=== PATIENT | male | born 1960 | race Caucasian/White ===

== ENCOUNTER 2021-08-28 13:10 | Inpatient (IN) ==
[2021-08-28] MEDS ORDERED: Ondansetron 4 MG/2 ML VIAL IVP PRN (16:01)
[2021-08-28] MEDS ORDERED: Naloxone 0.4 MG/ML INJ IVP PRN (16:01)
[2021-08-28] MEDS: carvediloL 6.25 MG TABLET PO SCH (16:46)
[2021-08-28] MEDS: Azithromycin 500 MG in 0.9 % Sodium Chloride 250 ML IVPB SCH (16:46)
[2021-08-28] MEDS: Ipratropium/Albuterol Neb 3 ML IH SCH ×2 (17:11→22:07)
[2021-08-28] MEDS: Apixaban 5 MG TABLET PO SCH (21:01)
[2021-08-28] MEDS: haloperidoL 5 MG TABLET PO SCH (21:01)
[2021-08-29 00:46] LABS: Hematocrit 33.3 % (37.5-50.1); Hemoglobin 11.2 g/dL (12.9-16.9); Mean Corpuscular HGB Conc 33.6 g/dL (31.6-35.5); Mean Corpuscular Hemoglobin 31.4 pg (28.0-33.3); Mean Corpuscular Volume 93.3 fL (83.0-100.0); Mean Platelet Volume 11.1 fL (9.4-12.4); Platelet Count 183 K/mcL (140-400); Red Blood Count 3.57 M/mcL (4.19-5.50); Red Cell Distribution Width 13.4 % (11.5-14.5); White Blood Count 15.6 K/mcL (4.3-11.1)
[2021-08-29 01:01] LABS: BUN/Creatinine Ratio 19 (6-26); Blood Urea Nitrogen 15 mg/dL (8-23); Calcium 7.9 mg/dL (8.6-10.3); Carbon Dioxide 22 mEq/L (23-29); Chloride 108 mEq/L (98-107); Glucose 141 mg/dL (70-105); Magnesium 1.5 mg/dL (1.6-2.6); Osmolality,Calculated 283 (280-300); Sodium 135 mEq/L (136-145); eGFR For African Americans > 60 (> 60); eGFR For Non-African Americans > 60 (> 60)
[2021-08-29 01:17] LABS: Lymphocytes # 1.9 K/mcL (0.6-4.6); Monocytes # 0.3 K/mcL (0.0-1.3); Neutrophils # 13.4 K/mcL (1.6-8.9)
[2021-08-29 01:18] LABS: Platelet Estimate Normal (Normal)
[2021-08-29] MEDS: Ipratropium/Albuterol Neb 3 ML IH SCH ×4 (03:52→21:00)
[2021-08-29] MEDS ORDERED: Calcium Gluconate 1gm/50mL 1 GM/50 ML BAG IVPB ONE (07:31)
[2021-08-29] MEDS ORDERED: lisinopriL 10 MG TABLET PO SCH (09:00)
[2021-08-29] MEDS: cefTRIAXone 1,000 MG in 0.9 % Sodium Chloride Mini Bag 100 ML IVPB SCH (09:40)
[2021-08-29] MEDS: Aspirin 81 MG TAB.CHEW PO SCH (09:41)
[2021-08-29] MEDS: carvediloL 6.25 MG TABLET PO SCH ×2 (09:41→17:30)
[2021-08-29] MEDS: Apixaban 5 MG TABLET PO SCH ×2 (09:41→23:09)
[2021-08-29] MEDS: Azithromycin 500 MG in 0.9 % Sodium Chloride 250 ML IVPB SCH (11:07)
[2021-08-29] MEDS ORDERED: carvediloL 6.25 MG TABLET PO SCH (15:00)
[2021-08-29] MEDS: haloperidoL 5 MG TABLET PO SCH (23:01)
[2021-08-30] MEDS ORDERED: Vancomycin 1,750 MG/517.5 ML IV.SOLN IVPB ONE (02:00)
[2021-08-30] MEDS: Ipratropium/Albuterol Neb 3 ML IH SCH ×4 (04:27→22:07)
[2021-08-30 05:56] LABS: Basophils % 0.3 %; Eosinophils # 0.3 K/mcL (0.0-0.6); Eosinophils % 3.5 %; Hematocrit 32.3 % (37.5-50.1); Hemoglobin 10.9 g/dL (12.9-16.9); Immature Granulocytes % 0.4 % (0-4); Lymphocytes % 11.1 %; Mean Corpuscular HGB Conc 33.7 g/dL (31.6-35.5); Mean Corpuscular Hemoglobin 31.7 pg (28.0-33.3); Mean Corpuscular Volume 93.9 fL (83.0-100.0); Mean Platelet Volume 10.9 fL (9.4-12.4); Monocytes # 0.6 K/mcL (0.0-1.3); Monocytes % 6.2 %; Neutrophils # 7.3 K/mcL (1.6-8.9); Platelet Count 164 K/mcL (140-400); Red Blood Count 3.44 M/mcL (4.19-5.50); Red Cell Distribution Width 13.6 % (11.5-14.5); Segmented Neutrophils % 78.5 %; White Blood Count 9.4 K/mcL (4.3-11.1)
[2021-08-30] MEDS ORDERED: Doxycycline 100 MG in 0.9 % Sodium Chloride Mini Bag 100 ML IVPB SCH (06:00)
[2021-08-30 06:51] LABS: BUN/Creatinine Ratio 18 (6-26); Blood Urea Nitrogen 12 mg/dL (8-23); Calcium 8.2 mg/dL (8.6-10.3); Carbon Dioxide 24 mEq/L (23-29); Chloride 106 mEq/L (98-107); Glucose 125 mg/dL (70-105); Magnesium 1.6 mg/dL (1.6-2.6); Osmolality,Calculated 285 (280-300); Potassium 3.6 mEq/L (3.5-5.1); Sodium 137 mEq/L (136-145); eGFR For African Americans > 60 (> 60); eGFR For Non-African Americans > 60 (> 60)
[2021-08-30] MEDS: Aspirin 81 MG TAB.CHEW PO SCH (07:26)
[2021-08-30] MEDS: carvediloL 6.25 MG TABLET PO SCH ×2 (07:27→17:15)
[2021-08-30] MEDS: Apixaban 5 MG TABLET PO SCH ×2 (07:27→20:12)
[2021-08-30] MEDS: cefTRIAXone 1,000 MG in 0.9 % Sodium Chloride Mini Bag 100 ML IVPB SCH (07:27)
[2021-08-30] MEDS: haloperidoL 1 MG TABLET PO SCH (07:30)
[2021-08-30] MEDS: Spironolactone 25 MG TABLET PO SCH (12:58)
[2021-08-30] MEDS ORDERED: Vancomycin 1,500 MG/265 ML IV.SOLN IVPB SCH ×3 (14:00→17:00)
[2021-08-30] MEDS: haloperidoL 5 MG TABLET PO SCH (20:16)
[2021-08-31 04:08] LABS: Basophils # 0.1 K/mcL (0.0-0.2); Basophils % 0.7 %; Eosinophils # 0.4 K/mcL (0.0-0.6); Eosinophils % 4.7 %; Hematocrit 39.5 % (37.5-50.1); Immature Granulocytes % 0.5 % (0-4); Lymphocytes # 1.3 K/mcL (0.6-4.6); Lymphocytes % 15.3 %; Mean Corpuscular HGB Conc 31.9 g/dL (31.6-35.5); Mean Corpuscular Hemoglobin 31.2 pg (28.0-33.3); Mean Corpuscular Volume 97.8 fL (83.0-100.0); Monocytes # 0.7 K/mcL (0.0-1.3); Monocytes % 8.3 %; Neutrophils # 5.8 K/mcL (1.6-8.9); Platelet Count 197 K/mcL (140-400); Red Blood Count 4.04 M/mcL (4.19-5.50); Red Cell Distribution Width 13.4 % (11.5-14.5); Segmented Neutrophils % 70.5 %; White Blood Count 8.2 K/mcL (4.3-11.1)
[2021-08-31 04:10] LABS: Hemoglobin 12.6 g/dL (12.9-16.9)
[2021-08-31] MEDS: Ipratropium/Albuterol Neb 3 ML IH SCH ×3 (04:10→15:46)
[2021-08-31 05:05] LABS: BUN/Creatinine Ratio 16 (6-26); Blood Urea Nitrogen 12 mg/dL (8-23); Calcium 8.4 mg/dL (8.6-10.3); Carbon Dioxide 20 mEq/L (23-29); Chloride 106 mEq/L (98-107); Glucose 80 mg/dL (70-105); Osmolality,Calculated 287 (280-300); Potassium 4.2 mEq/L (3.5-5.1); Sodium 139 mEq/L (136-145); eGFR For African Americans > 60 (> 60); eGFR For Non-African Americans > 60 (> 60)
[2021-08-31] MEDS: carvediloL 6.25 MG TABLET PO SCH (09:34)
[2021-08-31] MEDS: haloperidoL 1 MG TABLET PO SCH (09:34)
[2021-08-31] MEDS: Aspirin 81 MG TAB.CHEW PO SCH (09:34)
[2021-08-31] MEDS: Spironolactone 25 MG TABLET PO SCH (09:34)
[2021-08-31] MEDS: cefTRIAXone 1,000 MG in 0.9 % Sodium Chloride Mini Bag 100 ML IVPB SCH (09:35)
[2021-08-31] MEDS: Apixaban 5 MG TABLET PO SCH (09:35)
[2021-08-31 09:53] VITALS: O2SAT 96
[2021-08-31] MEDS ORDERED: Vancomycin 1,500 MG/265 ML IV.SOLN IVPB SCH (10:00)
[2021-08-31 11:24] VITALS: BP 129/80; PULSE 78; TEMP 97.7
== END 2021-08-31 15:52 | disposition home health service (06) | DRG 871 ==
LOC: 2NENU → SUATTDRO 15:26
PROVIDERS: ADMIT Pharmacist; ATTEND Family Medicine